=== PATIENT | female | born 1935 | race Caucasian/White ===

== ENCOUNTER → 2021-01-12 | Outpatient (CLI) | payer SELFPAY ==
[2021-01-12 19:02] LABS: Source, Urine Clean Catch
[2021-01-12 19:39] LABS: Appearance, Urine Cloudy (Clear); Bilirubin, Urine Neg (Neg); Blood, Urine 4+ (Neg); Color, Urine Yellow (P-Yellow); Glucose Qualitative, Urine Neg (Neg); Ketones, Urine Neg (Neg); Leukocyte Esterase, Urine 3+ (Neg); Nitrite, Urine Pos (Neg); Protein, Urine 3+ (Neg); Specific Gravity, Urine 1.015 (1.003-1.022); Urobilinogen, Urine NORM (Normal); pH, Urine 6.5 (5.0-8.0)
[2021-01-12 20:11] LABS: Bacteria Many /hpf; Red Blood Cells, Urine 25-50 /hpf (0-2); Squamous Epithelial Cells Rare /hpf (Few); White Blood Cells, Urine TNTC /hpf (0-5)
== END | disposition home or self-care (01) ==
LOC: LAB SHORT 10:30
PROVIDERS: Family Medicine
DX: N39.0 Urinary tract infection, site not specified (principal)
CPT/HCPCS: 81001; 87077; 87086; 87186

== ENCOUNTER → 2021-04-25 | Outpatient (CLI) | payer OTHER ==
[2021-04-25 12:21] LABS: BASOPHILS ABSOLUTE AUTO 0.05 K/mm3 (0.00-0.23); BASOPHILS PERCENT AUTO 1 % (0-2); EOSINOPHILS PERCENT AUTO 3 % (0-6); Hematocrit 45.6 % (33.0-51.0); Hemoglobin 13.9 g/dL (11.5-16.0); IMMATURE GRAN ABSOLUTE AUTO 0.01 K/mm3 (0.00-0.10); IMMATURE GRAN PERCENT AUTO 0 % (0-1); LYMPHOCYTES ABSOLUTE AUTO 1.85 K/mm3 (0.84-5.20); LYMPHOCYTES PERCENT AUTO 28 % (21-46); MONOCYTES PERCENT AUTO 6 % (4-13); Mean Corpuscular HGB 25.8 pg (26.0-34.0); Mean Corpuscular HGB Conc 30.5 g/dL (31.5-36.5); Mean Corpuscular Volume 85 fL (80-100); Mean Platelet Volume 9.6 fL (9.1-12.4); NEUTROPHILS ABSOLUTE AUTO 4.17 K/mm3 (1.96-9.15); NEUTROPHILS PERCENT AUTO 63 % (41-73); Platelet Count 303 K/mm3 (150-400); RDW Coefficient Variation 14.3 % (11.7-14.2); RDW Standard Deviation 43.7 fL (35.1-46.3); Red Blood Cell Count 5.38 M/mm3 (3.80-5.20); White Blood Cell Count 6.68 K/mm3 (4.00-11.30)
[2021-04-25 13:03] LABS: Alanine Aminotransfer (ALT/SGP 54 U/L (12-78); Albumin, Blood 3.6 g/dL (3.4-5.0); Albumin/Globulin Ratio 0.9 (0.8-1.8); Alk Phos 77 U/L (50-136); Anion Gap 10 mmol/L (6-16); Aspartate Aminotrans (AST/SGOT 36 U/L (12-37); Bilirubin, Total 0.4 mg/dL (0.1-1.0); Blood Urea Nitrogen 16 mg/dL (8-24); Bun/Creatinine Ratio 18.4 (12.0-20.0); CHOL/HDL RATIO 4.6; CO2, Blood 27 mmol/L (21-32); Calcium, Blood 8.6 mg/dL (8.5-10.1); Chloride, Blood 101 mmol/L (98-108); Cholesterol 274 mg/dL (50-200); Creatinine, Blood 0.87 mg/dL (0.40-1.00); Free Thyroxine 1.38 ng/dL (0.70-1.60); Glomerular Filtration Rate >60 (60-); Glucose, Blood 155 mg/dL (70-99); HDL Cholesterol 59 mg/dL (>39); LDL/HDL RATIO 3.3; Low Density Lipoprotein Chol 193 mg/dL (0-110); Potassium, Blood 3.8 mmol/L (3.5-5.5); Sodium, Blood 138 mmol/L (136-145); Total Protein, Blood 7.6 g/dL (6.4-8.2); Triglycerides 110 mg/dL (30-160); Triiodothyronine, Free 2.83 pg/mL (2.18-3.98); Very Low Density Lipoprot Chol 22 mg/dL (6-32)
== END ==
LOC: LAB SHORT 11:15
PROVIDERS: Family Medicine
DX: D50.9 Iron deficiency anemia, unspecified (principal); E89.0 Postprocedural hypothyroidism; F31.9 Bipolar disorder, unspecified; I10 Essential (primary) hypertension
CPT/HCPCS: 80053; 80061; 84439; 84443; 84481; 85025

== ENCOUNTER → 2021-07-13 | Outpatient (CLI) | payer MEDICARE, OTHER ==
[2021-07-15 07:11] LABS: HEMOGLOBIN A1C 5.9 % (4.8-5.6)
== END | disposition home or self-care (01) ==
LOC: LAB SHORT 08:00
PROVIDERS: Family Medicine
DX: E11.9 Type 2 diabetes mellitus without complications (principal)
CPT/HCPCS: 83036

== ENCOUNTER → 2021-07-20 | Outpatient (CLI) | payer MEDICARE, OTHER ==
[2021-07-20 12:20] LABS: Alanine Aminotransfer (ALT/SGP 21 U/L (12-78); Albumin, Blood 3.4 g/dL (3.4-5.0); Alk Phos 60 U/L (50-136); Anion Gap 4 mmol/L (6-16); Aspartate Aminotrans (AST/SGOT 13 U/L (12-37); Bilirubin, Total 0.4 mg/dL (0.1-1.0); Blood Urea Nitrogen 20 mg/dL (8-24); Bun/Creatinine Ratio 24.7 (12.0-20.0); CO2, Blood 32 mmol/L (21-32); Chloride, Blood 103 mmol/L (98-108); Creatinine, Blood 0.81 mg/dL (0.40-1.00); Free Thyroxine 1.19 ng/dL (0.70-1.60); Globulin, Blood 3.5 g/dL (2.2-4.0); Glomerular Filtration Rate >60 (60-); Glucose, Blood 131 mg/dL (70-99); Potassium, Blood 4.2 mmol/L (3.5-5.5); Sodium, Blood 139 mmol/L (136-145); Total Protein, Blood 6.9 g/dL (6.4-8.2)
[2021-07-20 12:24] LABS: Triiodothyronine, Free 2.51 pg/mL (2.18-3.98)
[2021-07-20 12:26] LABS: BASOPHILS ABSOLUTE AUTO 0.04 K/mm3 (0.00-0.23); BASOPHILS PERCENT AUTO 1 % (0-2); EOSINOPHILS ABSOLUTE AUTO 0.29 K/mm3 (0.00-0.68); EOSINOPHILS PERCENT AUTO 6 % (0-6); Hematocrit 43.7 % (33.0-51.0); Hemoglobin 13.2 g/dL (11.5-16.0); IMMATURE GRAN ABSOLUTE AUTO 0.01 K/mm3 (0.00-0.10); IMMATURE GRAN PERCENT AUTO 0 % (0-1); LYMPHOCYTES ABSOLUTE AUTO 1.58 K/mm3 (0.84-5.20); LYMPHOCYTES PERCENT AUTO 30 % (21-46); MONOCYTES ABSOLUTE AUTO 0.33 K/mm3 (0.16-1.47); MONOCYTES PERCENT AUTO 6 % (4-13); Mean Corpuscular HGB 25.8 pg (26.0-34.0); Mean Corpuscular HGB Conc 30.2 g/dL (31.5-36.5); Mean Corpuscular Volume 86 fL (80-100); Mean Platelet Volume 9.6 fL (9.1-12.4); NEUTROPHILS ABSOLUTE AUTO 3.05 K/mm3 (1.96-9.15); NEUTROPHILS PERCENT AUTO 58 % (41-73); Platelet Count 292 K/mm3 (150-400); RDW Coefficient Variation 15.1 % (11.7-14.2); RDW Standard Deviation 47.2 fL (35.1-46.3); Red Blood Cell Count 5.11 M/mm3 (3.80-5.20)
== END | disposition home or self-care (01) ==
LOC: LAB SHORT 09:59
PROVIDERS: Family Medicine
DX: E89.0 Postprocedural hypothyroidism (principal)
CPT/HCPCS: 80053; 84439; 84443; 84481; 85025

== ENCOUNTER → 2023-04-01 | Outpatient (CLI) | payer OTHER ==
[2023-04-03 11:12] LABS: Source, Urine Clean Catch
[2023-04-03 13:40] LABS: Appearance, Urine Hazy (Clear); Bilirubin, Urine Neg (Neg); Blood, Urine Neg (Neg); Color, Urine Yellow (P-Yellow); Glucose Qualitative, Urine Neg (Neg); Ketones, Urine Neg (Neg); Leukocyte Esterase, Urine 3+ (Neg); Nitrite, Urine Pos (Neg); Protein, Urine Neg (Neg); Urobilinogen, Urine NORM (Normal)
[2023-04-03 14:17] LABS: Bacteria Many /hpf; Squamous Epithelial Cells Few /hpf (Few)
[2023-04-03 14:18] LABS: Amorphous Light (0-Heavy)
== END ==
LOC: PLD 17:20 → LAB SHORT 17:20
PROVIDERS: Registered Nurse
DX: N39.0 Urinary tract infection, site not specified (principal)
CPT/HCPCS: 81001; 87077; 87086; 87186

== ENCOUNTER → 2024-10-25 | Outpatient (CLI) | payer OTHER ==
[~2024-10-25] MED LIST: AMLO5 PO; Acetaminophen325 M1 PO; ELIQUIS5 M2 PO; ENTRESTO 97 MG1 EACH PO; FURO40 PO; HYDHCL25 PO; JARDIANCE10 MG PO; LEVSOD100 PO; METO50ER PO; MIRALAX1714 PO; MULVITA PO; OLAN5A MM; OLANZAPINE ODT512 PO; ONDA4 PO; SPIR25 PO; VITAMIN D325 MC3 PO
[2024-10-25 21:35] LABS: Source, Urine Clean Catch
[2024-10-25 21:41] LABS: Bilirubin, Urine Neg (Neg); Glucose Qualitative, Urine Neg (Neg); Ketones, Urine Neg (Neg); Leukocyte Esterase, Urine 3+ (Neg); Protein, Urine 2+ (Neg); Specific Gravity, Urine 1.020 (1.003-1.022); Urobilinogen, Urine NORM (Normal)
[2024-10-25 21:48] LABS: Color, Urine Yellow (P-Yellow)
[2024-10-25 21:49] LABS: Red Blood Cells, Urine 0-2 /hpf (0-2); White Blood Cells, Urine TNTC /hpf (0-5)
== END ==
LOC: LAB SHORT 18:00 → LAB 18:00
PROVIDERS: Registered Nurse
DX: N39.0 Urinary tract infection, site not specified (principal)
CPT/HCPCS: 81001; 87077; 87086; 87186

== ENCOUNTER 2024-10-26 12:41 | Inpatient (IN) | payer OTHER ==
[~2024-10-26] VITALS: Ht 162.6 cm; Wt 74.2 kg
[2024-10-26 14:25] LABS: BASOPHILS ABSOLUTE AUTO 0.03 K/mm3 (0.00-0.23); BASOPHILS PERCENT AUTO 0 % (0-2); EOSINOPHILS ABSOLUTE AUTO 0.10 K/mm3 (0.00-0.68); EOSINOPHILS PERCENT AUTO 2 % (0-6); Hematocrit 40.3 % (33.0-51.0); Hemoglobin 12.7 g/dL (11.5-16.0); IMMATURE GRAN ABSOLUTE AUTO 0.02 K/mm3 (0.00-0.10); IMMATURE GRAN PERCENT AUTO 0 % (0-1); LYMPHOCYTES ABSOLUTE AUTO 1.01 K/mm3 (0.84-5.20); LYMPHOCYTES PERCENT AUTO 15 % (21-46); MONOCYTES ABSOLUTE AUTO 0.59 K/mm3 (0.16-1.47); MONOCYTES PERCENT AUTO 9 % (4-13); Mean Corpuscular HGB Conc 31.5 g/dL (31.5-36.5); Mean Corpuscular Volume 87 fL (80-100); NEUTROPHILS ABSOLUTE AUTO 5.03 K/mm3 (1.96-9.15); NEUTROPHILS PERCENT AUTO 74 % (41-73); NRBC ABSOLUTE 0.00 K/mm3 (0.00-0.02); NRBC Auto 0.0 /100 WBC (0.0-0.2); Platelet Count 231 K/mm3 (150-400); RDW Coefficient Variation 14.7 % (11.7-14.2); RDW Standard Deviation 46.2 fL (35.1-46.3)
[2024-10-26 14:44] LABS: Alanine Aminotransfer (ALT/SGP 31.0 U/L (12-78); Albumin, Blood 3.1 g/dL (3.4-5.0); Albumin/Globulin Ratio 0.8 (0.8-1.8); Anion Gap 10.0 mmol/L (3-11); Aspartate Aminotrans (AST/SGOT 41.0 U/L (12-37); Bilirubin, Total 0.9 mg/dL (0.1-1.0); Blood Urea Nitrogen 14.0 mg/dL (8-24); CO2, Blood 28.0 mmol/L (21-32); Calcium, Blood 8.4 mg/dL (8.5-10.1); Chloride, Blood 96.0 mmol/L (98-108); Creatinine, Blood 0.67 mg/dL (0.40-1.00); Globulin, Blood 4.1 g/dL (2.2-4.0); Glucose, Blood 104.0 mg/dL (70-99); Potassium, Blood 5.7 mmol/L (3.5-5.5); Sodium, Blood 128.0 mmol/L (136-145); Total Protein, Blood 7.2 g/dL (6.4-8.2)
[2024-10-26] MEDS ORDERED: Diazepam 5 MG / ML 2ML SYR IV ONE (16:25)
[2024-10-26 16:36] LABS: Magnesium, Blood 2.2 mg/dL (1.6-2.4); Thyroid Stimulating Hormone 5.47 uIU/mL (0.360-4.800)
[2024-10-26 17:46] VITALS: BP 127/85
--- NOTE | 2024-10-26 19:18 | NUR ---
ADMIT NOTE REPORT FROM DIRECTOR OF FOOD AND NUTRITION SERVICESARELY DIAZ. BROUGHT UP FROM ER VIA GURNEY, SLIDE TRANSFER INTO BED. PT CAN NOT TOLERATE LAYING FLAT. HOB ELEVATED. EDMEA T/O ARMS/LEGS/ABD/BACK, APPEARS TO BE WEEPING. CLARIFIED 80 MG DOSE LASIX THAT WAS ORDERED 4 HOURS AFTER LAST 80 M DOSE ADMIN IN ER. DR. BECKMAN ORDERED TO HOLD. PT VERY LIMITED MOBILITY, HAS BEEN WHEELCHAIR BOUND PER PATIENT AT [facility] [place]. BRUISING TO RIGHT ARM PER PATIENT FROM FALL. VERY THIN/FRAGILE/PEELING SKIN. MOISTURIZER APPLIED T/O. PREET LE WITH PETECHIAE LIKE SPOTS TO LEFT ARM AND LEFT LEG. ON TELE A-FLUTTER AT 122. BUT HEART SOUNDS ARE NORMAL. CAP REFILL GREATER THAN 3 SECONDS. PEDAL PULSES COULD NOT BE FELT DUE TO EDMEA, BUT FAINLY HEARD ON DOPPLER. PATIENT DENIES NUMBNESS/TINGLING T/O EXTREMITIES. PUREWICK IN PLACE TO MONITOR OUTPUT. PT ANSWERS QUESTIONS APPROPRIATELY. A/OX4. BASELINE ROOM AIR, ER PLACED ON 2L TO MAINTAIN SATS AFTER IV VALIUM WAS GIVEN. PT ANXIOUS DUE TO SHORTNESS OF BREATH.
[2024-10-26 19:33] VITALS: BP 118/63
[2024-10-26 19:52] VITALS: BP 96/67
[2024-10-27] VITALS (8 sets, daily range): BP systolic 93–118; BP diastolic 62–74
--- NOTE | 2024-10-27 01:55 | NUR ---
Telemetry notified this nurse pt is currently in AFIB review of pt history and ekg shows patient has recurrent hx of AFIB and ST pt is resting comfortably no s/s of distress.
--- NOTE | 2024-10-27 03:28 | NUR ---
SHIFT SUMMARY: PT IS AOX4. Q2 REPOSITIONING DONE. PUREWIC IN PLACE AND SUCTION IS AT 75 AND DRAINING YELLOW URINE INTO CANISTER. PT MEDICATED PER EMAR. NO ACUTE CHANGES THIS SHIFT.
[2024-10-27 05:51] LABS: BASOPHILS ABSOLUTE AUTO 0.04 K/mm3 (0.00-0.23); BASOPHILS PERCENT AUTO 1 % (0-2); EOSINOPHILS ABSOLUTE AUTO 0.09 K/mm3 (0.00-0.68); EOSINOPHILS PERCENT AUTO 1 % (0-6); Hematocrit 38.3 % (33.0-51.0); Hemoglobin 12.0 g/dL (11.5-16.0); IMMATURE GRAN ABSOLUTE AUTO 0.01 K/mm3 (0.00-0.10); IMMATURE GRAN PERCENT AUTO 0 % (0-1); LYMPHOCYTES ABSOLUTE AUTO 1.05 K/mm3 (0.84-5.20); LYMPHOCYTES PERCENT AUTO 16 % (21-46); MONOCYTES ABSOLUTE AUTO 0.84 K/mm3 (0.16-1.47); MONOCYTES PERCENT AUTO 13 % (4-13); Mean Corpuscular HGB Conc 31.3 g/dL (31.5-36.5); Mean Corpuscular Volume 86 fL (80-100); NEUTROPHILS ABSOLUTE AUTO 4.44 K/mm3 (1.96-9.15); NEUTROPHILS PERCENT AUTO 69 % (41-73); NRBC ABSOLUTE 0.00 K/mm3 (0.00-0.02); NRBC Auto 0.0 /100 WBC (0.0-0.2); Platelet Count 197 K/mm3 (150-400); RDW Coefficient Variation 14.7 % (11.7-14.2); RDW Standard Deviation 46.2 fL (35.1-46.3)
[2024-10-27 06:23] LABS: Alanine Aminotransfer (ALT/SGP 25.0 U/L (12-78); Albumin, Blood 2.9 g/dL (3.4-5.0); Albumin/Globulin Ratio 1.0 (0.8-1.8); Anion Gap 6.0 mmol/L (3-11); Aspartate Aminotrans (AST/SGOT 17.0 U/L (12-37); Bilirubin, Total 0.9 mg/dL (0.1-1.0); Blood Urea Nitrogen 13.0 mg/dL (8-24); CO2, Blood 34.0 mmol/L (21-32); Calcium, Blood 8.0 mg/dL (8.5-10.1); Chloride, Blood 97.0 mmol/L (98-108); Creatinine, Blood 0.83 mg/dL (0.40-1.00); Globulin, Blood 3.0 g/dL (2.2-4.0); Glucose, Blood 90.0 mg/dL (70-99); Potassium, Blood 4.1 mmol/L (3.5-5.5); Sodium, Blood 133.0 mmol/L (136-145); Total Protein, Blood 5.9 g/dL (6.4-8.2)
[2024-10-27] MEDS ORDERED: MULVITA PO (07:20)
[2024-10-27] MEDS ORDERED: VITAMIN D325 MC3 PO (07:20)
[2024-10-27] MEDS ORDERED: LEVSOD100 PO (07:21)
[2024-10-27] MEDS ORDERED: AMLO5 PO (07:21)
[2024-10-27] MEDS ORDERED: OLANZAPINE ODT512 PO (07:22)
[2024-10-27] MEDS ORDERED: HYDHCL25 PO (07:23)
[2024-10-27] MEDS ORDERED: MIRALAX1714 PO (07:25)
[2024-10-27] MEDS ORDERED: Enoxaparin 40 MG/0.4 ML SYR SC SCH (09:00)
[2024-10-27] MEDS ORDERED: CefTRIAXone Sodium 1,000 MG in NS 100 ML IV SCH (09:00)
[2024-10-27] MEDS ORDERED: NS 250 ML IV PRN (10:15)
--- NOTE | 2024-10-27 13:14 | NUR ---
NURSE FROM [facility] CALLED FOR AN UPDATE ON PATIENT.
[2024-10-27] MEDS ORDERED: Metoprolol Tartrate 1 MG/ML 5 ML VIAL IV PRN (15:15)
--- NOTE | 2024-10-27 16:20 | NUR ---
NOTIFIED DR. EDMONDSON PT HEART RATE WAS MAINTINING GREATER THAN [address] EDMONDSON ORDERED ONE TIME DOSE OF 5 MG IV LOPRESSOR AND STARTED PO 12.5 MG METOPROLOL BID. NOTIFIED TELE OF IV PUSH MEDICATION AND PT HR IS NOW SUSTAINING LOW 100'S. B/P SOFT BUT STABLE WITH MAP GREATER THAN 65. PT TOLERATED IVP WELL. WILL GET FOLLOW UP BLOOD PRESUSRE IN ABOUT 1 HOUR.
[2024-10-27] MEDS ORDERED: Furosemide 10 MG / ML 2ML Vial IV SCH (18:00)
[2024-10-27] MEDS ORDERED: Lactobacil 2-S.Thermo-Bifido 1 1 Cap PO SCH (21:00)
[2024-10-28 00:25] VITALS: BP 105/60
[2024-10-28 03:02] VITALS: BP 107/72
--- NOTE | 2024-10-28 04:09 | NUR ---
SHIFT SUMMARY PT ALERT ORIENTED BUT DONT LIKE TO BE BOTHERED. SHE PREFERS TO BE SLEEPING AND TO BE LEFT ALONE. WE EXPLAINED TO HER THAT WE HAVE TO KEEP HER CLEAN AND TURNED. REMAINS ON TELEMETRY AT [facility] AT 92. REMAINS WITH ANASARCA AND IS VERY EDEMATOUS ALL OVER HER BODY WITH 3-4 EDEMA TO BILAT LEGS. REMAINS WITH A PUREWICK IN PLACE WHICH WAS CHANGED THIS AM. REMAINS ON BEDREST. CONTINUES ON ROCEPHIN FOR UTI. REMAINS ON STRICT I7O AND DAILY WEIGHTS R/T NEW DX OF CHF. SHE GETS PERIODS OF FEELING VERY ANXIOUS AND IS MEDICATED WITH ATIVAN WITH GOOD RELIEF. SHES KEPT TURNED AND REPOSITIONED Q2HR. RESTING IN BED AT THIS TIME WITH CALL LIGHT IN REACH
[2024-10-28 06:03] LABS: BASOPHILS ABSOLUTE AUTO 0.03 K/mm3 (0.00-0.23); BASOPHILS PERCENT AUTO 1 % (0-2); EOSINOPHILS ABSOLUTE AUTO 0.10 K/mm3 (0.00-0.68); EOSINOPHILS PERCENT AUTO 2 % (0-6); Hematocrit 38.3 % (33.0-51.0); Hemoglobin 11.8 g/dL (11.5-16.0); IMMATURE GRAN ABSOLUTE AUTO 0.02 K/mm3 (0.00-0.10); IMMATURE GRAN PERCENT AUTO 0 % (0-1); LYMPHOCYTES ABSOLUTE AUTO 1.04 K/mm3 (0.84-5.20); LYMPHOCYTES PERCENT AUTO 18 % (21-46); MONOCYTES ABSOLUTE AUTO 0.71 K/mm3 (0.16-1.47); MONOCYTES PERCENT AUTO 12 % (4-13); Mean Corpuscular HGB Conc 30.8 g/dL (31.5-36.5); Mean Corpuscular Volume 87 fL (80-100); NEUTROPHILS ABSOLUTE AUTO 3.81 K/mm3 (1.96-9.15); NEUTROPHILS PERCENT AUTO 67 % (41-73); NRBC ABSOLUTE 0.00 K/mm3 (0.00-0.02); NRBC Auto 0.0 /100 WBC (0.0-0.2); Platelet Count 216 K/mm3 (150-400); RDW Coefficient Variation 14.6 % (11.7-14.2); RDW Standard Deviation 47.1 fL (35.1-46.3)
[2024-10-28 06:29] LABS: Alanine Aminotransfer (ALT/SGP 21.0 U/L (12-78); Albumin, Blood 2.9 g/dL (3.4-5.0); Albumin/Globulin Ratio 0.9 (0.8-1.8); Anion Gap 8.0 mmol/L (3-11); Aspartate Aminotrans (AST/SGOT 14.0 U/L (12-37); Bilirubin, Total 0.6 mg/dL (0.1-1.0); Blood Urea Nitrogen 21.0 mg/dL (8-24); CO2, Blood 35.0 mmol/L (21-32); Calcium, Blood 8.0 mg/dL (8.5-10.1); Chloride, Blood 96.0 mmol/L (98-108); Creatinine, Blood 1.09 mg/dL (0.40-1.00); Globulin, Blood 3.1 g/dL (2.2-4.0); Glucose, Blood 99.0 mg/dL (70-99); Potassium, Blood 3.8 mmol/L (3.5-5.5); Sodium, Blood 135.0 mmol/L (136-145); Total Protein, Blood 6.0 g/dL (6.4-8.2)
[2024-10-28 07:51] VITALS: BP 101/64
[2024-10-28 11:40] VITALS: BP 103/71
[2024-10-28 15:12] VITALS: BP 100/63
[2024-10-28 19:27] VITALS: BP 116/64
[2024-10-28] MEDS ORDERED: Sacubitril/Valsartan 49 MG/51 MG Tab PO SCH (21:00)
[2024-10-29] VITALS (8 sets, daily range): BP systolic 84–109; BP diastolic 48–88
[2024-10-29 05:40] LABS: BASOPHILS ABSOLUTE AUTO 0.02 K/mm3 (0.00-0.23); BASOPHILS PERCENT AUTO 0 % (0-2); EOSINOPHILS ABSOLUTE AUTO 0.07 K/mm3 (0.00-0.68); EOSINOPHILS PERCENT AUTO 1 % (0-6); Hematocrit 38.2 % (33.0-51.0); Hemoglobin 11.8 g/dL (11.5-16.0); IMMATURE GRAN ABSOLUTE AUTO 0.02 K/mm3 (0.00-0.10); IMMATURE GRAN PERCENT AUTO 0 % (0-1); LYMPHOCYTES ABSOLUTE AUTO 1.15 K/mm3 (0.84-5.20); LYMPHOCYTES PERCENT AUTO 17 % (21-46); MONOCYTES ABSOLUTE AUTO 0.75 K/mm3 (0.16-1.47); MONOCYTES PERCENT AUTO 11 % (4-13); Mean Corpuscular HGB Conc 30.9 g/dL (31.5-36.5); Mean Corpuscular Volume 87 fL (80-100); NEUTROPHILS ABSOLUTE AUTO 4.67 K/mm3 (1.96-9.15); NEUTROPHILS PERCENT AUTO 70 % (41-73); NRBC ABSOLUTE 0.00 K/mm3 (0.00-0.02); NRBC Auto 0.0 /100 WBC (0.0-0.2); Platelet Count 206 K/mm3 (150-400); RDW Coefficient Variation 14.5 % (11.7-14.2); RDW Standard Deviation 46.6 fL (35.1-46.3)
--- NOTE | 2024-10-29 05:42 | NUR ---
SHIFT SUMMARY PT ALERT ORIENTED TO SELF AND PLACE UNSURE OF DATE OR MONTH AND IS VERY CONFUSED. SHE KEEPS INSISTING THAT SHE CAN GET UP OUT OF BED WHEN SHES VERY WEAK AND UNABLE TO STAND. SHE HAS TO BE REMINDED TO STAY IN THE BED. BED ALARM IS ON. REMAINS ON ROCEPHIN ORDERED FOR UTI SHE LIVES AT [facility] AND SHOULD BE GOING BACK THERE TODAY. SHE HAS A PUREWICK INTACT AND IS INC OF URINE. SHE REMAINS ON BEDREST AND IS A LIFT TRANSFER. REMAINS ON 1L VIA NC. SHES KEPT TURNED AND REPOSITIONED Q2HR. SHES A DAILY WEIGHT AND ON STRICT I&O DUE TO CHF. SHE GETS VERY ANXIOUS AT TIMES AND HAS A ORDER FOR ATIVAN NEEDED. SHES RESTING IN BED AT THIS TIME WITH CALL LIGHT IN REACH
[2024-10-29 06:03] LABS: Anion Gap 6.0 mmol/L (3-11); Blood Urea Nitrogen 22.0 mg/dL (8-24); CO2, Blood 39.0 mmol/L (21-32); Calcium, Blood 7.9 mg/dL (8.5-10.1); Chloride, Blood 95.0 mmol/L (98-108); Creatinine, Blood 0.94 mg/dL (0.40-1.00); Glucose, Blood 100.0 mg/dL (70-99); Potassium, Blood 3.5 mmol/L (3.5-5.5); Sodium, Blood 136.0 mmol/L (136-145)
--- NOTE | 2024-10-29 17:19 | NUR ---
End of shift summary: Patient is alert and oriented to self, place only; forgetful and confused, repeats self/questions and call frequently for same reason; pleasant and cooperative with care. Patient with purewick in place draining dark yellow urine. Patient up with physical therapy utilizing walker and gait belt. Patient denies CP, SOB, N/V/D, or pain this shift. Patient with no acute changes this shift. All medications administered per EMAR. Patient utilizing call light sporadically, will call out if she see's you in bliss instead at times; call light within reach, bed in lowest position and bed alarm in place for safety. Will continue to monitor until next shift nurse arrives and report is given.
[2024-10-29] MEDS ORDERED: NS 250 ML IV ONE (20:20)
--- NOTE | 2024-10-29 20:38 | NUR ---
WHEN GETTING PATIENTS VITALS - HER BP ON THE LEFT ARM WAS 84/48 WITH MAP OF 55, THEN RECHECKED BP ON THE RIGHT ARM WITH BP 87/59 WITH MAP OF 70. PATIENT DENIES DIZZINESS OR LIGHTHEADEDNESS AT THIS TIME. THIS NURSE CALLED DR. HANSEN TO UPDATE HIM ON HER CONDITION. MD ORDERED TO HOLD ENTRESTO AND TO GIVE A NS BOLUS OF 250ML - THEN RECHECK BP - AND CALL HIM BACK WITH AN UPDATE.
--- NOTE | 2024-10-29 22:34 | NUR ---
CALLED TYRONE REINA WITH UPDATES: POST BOLUS SBP WAS 103 WITH A MAP >65. PATIENT WAS BLADDER SCANNED WITH 1,088ML, PATIENT ATTEMPTED TO VOID, THEN WAS RE-BLADDER SCANNED WITH >800ML STILL IN BLADDER. PATIENT THEN WAS STRAIGHT CATHED WITH 700ML URINE OUTPUT. TELE ALSO NOTIFIED THIS NURSE AT 2140 THAT PATIENT WENT INTO TRIGEMINY FOR 28 BEATS. NOTIFIED, NO NEW ORDERS AT THIS TIME.
[2024-10-30] VITALS (10 sets, daily range): BP systolic 88–118; BP diastolic 49–73
--- NOTE | 2024-10-30 06:19 | NUR ---
SHIFT SUMMARY: PATIENT IS A&OX2, OFTEN REPEATS HERSELF BUT IS EASILY REORIENTED. PER RN GERIATRIC PATIENT IS AFLUTTER @ 80 BPM. PATIENT WAS STRAIGHT CATHED X2 LAST NIGHT THE LAST ONE BEING AT 0430 THIS MORNING AND 550ML URINE OUTPUT. PATIENT PRIOR TO STRAIGHT CATHING DENIED NEEDING TO VOID OR HAD THE URGE TO VOID. PATIENT REFUSED REPOSITIONING MAJORITY OF THE SHIFT. PATIENT IS A 2P ASSIST WITH BSC OR WHEN CHANGING LINENS/ATTENDS. PATIENT IS LAYING IN BED WITH CALL LIGHT IN REACH.
--- NOTE | 2024-10-30 17:58 | NUR ---
End of shift summary: Patient is alert and oriented x2, self and place, with continued confusion and repeating questions. Patient with no acute changes this shift. New 14F mckeon catheter in place due to urine retention. No complaint of pain, SOB, chest pain or pressure or N/V/D. All medications administered per EMAR. Patient utilizing call light appropriately; call light within reach, bed in lowest position and bed alarm in place for safety. Will continue to monitor until next shift nurse arrives and report is given.
[2024-10-31 04:38] VITALS: BP 103/73
[2024-10-31 06:12] LABS: BASOPHILS ABSOLUTE AUTO 0.02 K/mm3 (0.00-0.23); BASOPHILS PERCENT AUTO 0 % (0-2); EOSINOPHILS ABSOLUTE AUTO 0.10 K/mm3 (0.00-0.68); EOSINOPHILS PERCENT AUTO 2 % (0-6); Hematocrit 40.3 % (33.0-51.0); Hemoglobin 12.3 g/dL (11.5-16.0); IMMATURE GRAN ABSOLUTE AUTO 0.02 K/mm3 (0.00-0.10); IMMATURE GRAN PERCENT AUTO 0 % (0-1); LYMPHOCYTES ABSOLUTE AUTO 1.14 K/mm3 (0.84-5.20); LYMPHOCYTES PERCENT AUTO 18 % (21-46); MONOCYTES ABSOLUTE AUTO 0.70 K/mm3 (0.16-1.47); MONOCYTES PERCENT AUTO 11 % (4-13); Mean Corpuscular HGB Conc 30.5 g/dL (31.5-36.5); Mean Corpuscular Volume 86 fL (80-100); NEUTROPHILS ABSOLUTE AUTO 4.28 K/mm3 (1.96-9.15); NEUTROPHILS PERCENT AUTO 68 % (41-73); NRBC ABSOLUTE 0.00 K/mm3 (0.00-0.02); NRBC Auto 0.0 /100 WBC (0.0-0.2); Platelet Count 210 K/mm3 (150-400); RDW Coefficient Variation 14.6 % (11.7-14.2); RDW Standard Deviation 46.1 fL (35.1-46.3)
[2024-10-31 06:53] LABS: Alanine Aminotransfer (ALT/SGP 20.0 U/L (12-78); Albumin, Blood 2.8 g/dL (3.4-5.0); Albumin/Globulin Ratio 0.8 (0.8-1.8); Anion Gap 8.0 mmol/L (3-11); Aspartate Aminotrans (AST/SGOT 18.0 U/L (12-37); Bilirubin, Total 0.7 mg/dL (0.1-1.0); Blood Urea Nitrogen 29.0 mg/dL (8-24); CO2, Blood 36.0 mmol/L (21-32); Calcium, Blood 8.4 mg/dL (8.5-10.1); Chloride, Blood 97.0 mmol/L (98-108); Creatinine, Blood 0.96 mg/dL (0.40-1.00); Globulin, Blood 3.3 g/dL (2.2-4.0); Glucose, Blood 103.0 mg/dL (70-99); Potassium, Blood 3.3 mmol/L (3.5-5.5); Sodium, Blood 138.0 mmol/L (136-145); Total Protein, Blood 6.1 g/dL (6.4-8.2)
--- NOTE | 2024-10-31 07:20 | NUR ---
SHIFT SUMMARY; PATIENT SLEPT IN SHORT INTERVALS. NOT WANTING TO DO MUCH, O2/1L/NC PRN TONIGHT. DID NOT TAKE MUCH WATER, LESS THAN 500ML. TELE A FLUTTER 87 WITH PVC'S. BLE FOB ELEVATED, BOTH HANDS PROPPED UP ON PILLOWS.
[2024-10-31 07:53] VITALS: BP 96/62
[2024-10-31 11:45] VITALS: BP 115/64
[2024-10-31 16:01] VITALS: BP 100/73
--- NOTE | 2024-10-31 19:26 | NUR ---
SHIFT SUMMARY: PT A&O X2. VERY FORGETFUL. PT HOLLERS OUT INSTEAD OF USING CALL LIGHT. SPOKE WITH DR. EDMONDSON THIS AM PT WAS HAVING HYPOTENSION AND AN ORDER FOR IV DIURETICS. PER DR. EDMONDSON, HOLD IV AND PO DIURETICS AND WOULD ADJUST DOSAGE. PT HAS YELLED OUT FOR HELP TO THE TOILET MULTIPLE TIMES THIS SHIFT. PT WILL THEN SIT ON COMMODE/TOILET AND STATE SHE IS UNABLE TO GO THEN YELL OUT FOR HELP AGAIN. STAFF HAS EXPLAINED TO PATIENT MULTIPLE TIMES THAT SHE CAN SIT ON BED SINGH OR CLEAN BRIEF IF SHE CAN NOT GO IN COMMODE OR TOILET BUT PT AGAIN REFUSED. LOMELI IN PLACE DRAINING YELLOW URINE TO GRAVITY. STAFF FROM [facility] IN TO SEE PT THIS AM STATING EQUIPMENT GOT DELIVERED TO PT ROOM AT FACILITY. CALL LIGHT IN REACH. BED IN LOWEST POSITION.
[2024-10-31 20:14] VITALS: BP 93/56
[2024-11-01] VITALS (8 sets, daily range): BP systolic 84–123; BP diastolic 52–74
[2024-11-01 05:37] LABS: BASOPHILS ABSOLUTE AUTO 0.02 K/mm3 (0.00-0.23); BASOPHILS PERCENT AUTO 0 % (0-2); EOSINOPHILS ABSOLUTE AUTO 0.14 K/mm3 (0.00-0.68); EOSINOPHILS PERCENT AUTO 3 % (0-6); Hematocrit 40.4 % (33.0-51.0); Hemoglobin 12.3 g/dL (11.5-16.0); IMMATURE GRAN ABSOLUTE AUTO 0.01 K/mm3 (0.00-0.10); IMMATURE GRAN PERCENT AUTO 0 % (0-1); LYMPHOCYTES ABSOLUTE AUTO 1.03 K/mm3 (0.84-5.20); LYMPHOCYTES PERCENT AUTO 18 % (21-46); MONOCYTES ABSOLUTE AUTO 0.64 K/mm3 (0.16-1.47); MONOCYTES PERCENT AUTO 11 % (4-13); Mean Corpuscular HGB Conc 30.4 g/dL (31.5-36.5); Mean Corpuscular Volume 87 fL (80-100); NEUTROPHILS ABSOLUTE AUTO 3.86 K/mm3 (1.96-9.15); NEUTROPHILS PERCENT AUTO 68 % (41-73); NRBC ABSOLUTE 0.00 K/mm3 (0.00-0.02); NRBC Auto 0.0 /100 WBC (0.0-0.2); Platelet Count 213 K/mm3 (150-400); RDW Coefficient Variation 14.6 % (11.7-14.2); RDW Standard Deviation 46.5 fL (35.1-46.3)
[2024-11-01 06:01] LABS: Albumin, Blood 2.8 g/dL (3.4-5.0); Anion Gap 5 mmol/L (3-11); Blood Urea Nitrogen 31 mg/dL (8-24); CO2, Blood 37 mmol/L (21-32); Calcium, Blood 8.5 mg/dL (8.5-10.1); Chloride, Blood 97 mmol/L (98-108); Creatinine, Blood 0.99 mg/dL (0.40-1.00); Glucose, Blood 104 mg/dL (70-99); Magnesium, Blood 2.1 mg/dL (1.6-2.4); Phosphorus, Blood 3.3 mg/dL (2.5-4.9); Potassium, Blood 3.3 mmol/L (3.5-5.5); Sodium, Blood 136 mmol/L (136-145)
--- NOTE | 2024-11-01 07:35 | NUR ---
SHIFT SUMMARY; PATIENT SLEPT IN LONGER INTERVALS, BUT STILL AWAKE OFTEN. ABLE TO WALK WITH 1 ,/FWW. CHANGES HER MIND OFTEN AND CAN BE HARD TO REDIRECT. MEPILEX REMOVED, SOILED WTIH STOOL, TELE A FLUTTER 92.
[2024-11-01] MEDS ORDERED: Potassium Chloride 10 Meq Tablet SA PO SCH ×2 (09:00)
[2024-11-01] MEDS ORDERED: Furosemide 10 MG / ML 2ML Vial IV SCH (12:00)
[2024-11-01] MEDS ORDERED: Acetaminophen325 M1 PO (12:14)
[2024-11-01] MEDS ORDERED: FURO40 PO (12:15)
[2024-11-01] MEDS ORDERED: ONDA4 PO (12:16)
[2024-11-01] MEDS ORDERED: OLAN5A MM (12:16)
--- NOTE | 2024-11-01 18:28 | NUR ---
SHIFT SUMMARY: PATIENT STILL PLEASANTLY CONFUSED AND CONTINUES TO CALL OUT INTO HALLWAY. LASIX RESTARTED TODAY PER DOCTORS ORDER. BLOOD PRESSURE WAS IMPROVING EARLIER THIS DAY. BLOOD PRESSURE NOTED TO BE HYPOTENSIVE AFTER LASIX ADMINISTRATION. DR. EDMONDSON NOTIFIED OF RESULTS AND NO NEW ORDERS PLACED. PATIENT STILL HAS LOMELI AND IS DRAINING TO GRAVITY WITH CLEAR YELLOW URINE OUTPUT. PATIENT NOTED TO STILL BE EDEMITIS THROUGHOUT UPPER AND LOWER EXTREMETIES. PLAN TO D/C BACK TO [facility] ONCE IMPROVED. [facility] RECIEVED EARLIER THIS DAY. PLAN OF CARE ONGOING. WILL CONTINUE TO MONITOR.
[2024-11-02 04:07] VITALS: BP 105/68
[2024-11-02 05:48] LABS: BASOPHILS ABSOLUTE AUTO 0.03 K/mm3 (0.00-0.23); BASOPHILS PERCENT AUTO 1 % (0-2); EOSINOPHILS ABSOLUTE AUTO 0.12 K/mm3 (0.00-0.68); EOSINOPHILS PERCENT AUTO 2 % (0-6); Hematocrit 41.3 % (33.0-51.0); Hemoglobin 12.8 g/dL (11.5-16.0); IMMATURE GRAN ABSOLUTE AUTO 0.01 K/mm3 (0.00-0.10); IMMATURE GRAN PERCENT AUTO 0 % (0-1); LYMPHOCYTES ABSOLUTE AUTO 1.78 K/mm3 (0.84-5.20); LYMPHOCYTES PERCENT AUTO 29 % (21-46); MONOCYTES ABSOLUTE AUTO 0.57 K/mm3 (0.16-1.47); MONOCYTES PERCENT AUTO 9 % (4-13); Mean Corpuscular HGB Conc 31.0 g/dL (31.5-36.5); Mean Corpuscular Volume 86 fL (80-100); NEUTROPHILS ABSOLUTE AUTO 3.61 K/mm3 (1.96-9.15); NEUTROPHILS PERCENT AUTO 59 % (41-73); NRBC ABSOLUTE 0.00 K/mm3 (0.00-0.02); NRBC Auto 0.0 /100 WBC (0.0-0.2); Platelet Count 222 K/mm3 (150-400); RDW Coefficient Variation 14.6 % (11.7-14.2); RDW Standard Deviation 45.1 fL (35.1-46.3)
[2024-11-02 06:07] LABS: Albumin, Blood 2.8 g/dL (3.4-5.0); Anion Gap 9 mmol/L (3-11); Blood Urea Nitrogen 27 mg/dL (8-24); CO2, Blood 32 mmol/L (21-32); Calcium, Blood 8.2 mg/dL (8.5-10.1); Chloride, Blood 97 mmol/L (98-108); Creatinine, Blood 0.91 mg/dL (0.40-1.00); Glucose, Blood 119 mg/dL (70-99); Phosphorus, Blood 3.6 mg/dL (2.5-4.9); Potassium, Blood 3.7 mmol/L (3.5-5.5); Sodium, Blood 134 mmol/L (136-145)
[2024-11-02 07:37] VITALS: BP 115/83
[2024-11-02] MEDS ORDERED: Potassium Chloride 10 Meq Tablet SA PO ONE (10:15)
--- NOTE | 2024-11-02 14:17 | NUR ---
PATIENT CALLING OUT AND BED EXITING SEVERAL TIMES PER HOUR CONSISTENTLY. DEMANDING BEHAVIORS, DECLINES TO ASSIST HERSELF WITH ADL'S, TOILETING. WILL STAND WITH 1 ASSIST TO BSC, INCONTINENT BEFORE REACHING BSC. SEVERAL BM'S THIS SHIFT. LOMELI IN PLACE DRAINING FREELY TO GRAVITY. DISCUSSED THE NEED FOR CONTINUING TELE WITH DR EDMONDSON WHO FEELS IT IS NEEDED, LOW BP'S AND A FIB WITH PVC'S. DTI'S TO BILATERAL BUTTOCKS INTACT, PURPLE. ABLE TO MAKE NEEDS KNOWN. CALL LIGHT IN REACH. BED ALARMED.
[2024-11-02 14:55] VITALS: BP 111/62
[2024-11-02 19:10] VITALS: BP 92/79
[2024-11-02 23:07] VITALS: BP 107/61
--- NOTE | 2024-11-03 04:00 | NUR ---
SHIFT SUMMARY PATIENT HAD NO ACUTE CHANGES. AXO X 3 WITH CONFUSION AT TIMES. ONE ASSIST W/FWW TO BSC. DENIES CHEST PAIN, SOB, AND N/V. VSS/AFEBRILE. LOMELI PATENT AND DRAINING TO GRAVITY. PIV INTACT. TELE MONITOR AFIB 76. CALL LIGHT IN REACH. BED IN LOWEST POSITION AND ALARM ACTIVATED. WILL CONTINUE TO MONITOR UNTIL DAY SHIFT NURSE ASSUMES CARE.
[2024-11-03 05:44] VITALS: BP 114/79
[2024-11-03 06:40] LABS: Magnesium, Blood 2.1 mg/dL (1.6-2.4)
[2024-11-03 06:41] LABS: Albumin, Blood 2.8 g/dL (3.4-5.0); Anion Gap 7 mmol/L (3-11); Blood Urea Nitrogen 27 mg/dL (8-24); CO2, Blood 34 mmol/L (21-32); Calcium, Blood 8.2 mg/dL (8.5-10.1); Chloride, Blood 101 mmol/L (98-108); Creatinine, Blood 0.96 mg/dL (0.40-1.00); Glucose, Blood 107 mg/dL (70-99); Phosphorus, Blood 3.5 mg/dL (2.5-4.9); Potassium, Blood 3.9 mmol/L (3.5-5.5); Sodium, Blood 138 mmol/L (136-145)
[2024-11-03 08:14] VITALS: BP 119/72
[2024-11-03] MEDS ORDERED: ELIQUIS5 M2 PO (13:41)
[2024-11-03] MEDS ORDERED: ENTRESTO 97 MG1 EACH PO (13:42)
[2024-11-03] MEDS ORDERED: SPIR25 PO (13:42)
[2024-11-03] MEDS ORDERED: JARDIANCE10 MG PO (13:42)
[2024-11-03] MEDS ORDERED: METO50ER PO (13:42)
--- NOTE | 2024-11-03 14:35 | NUR ---
PATIENT DC'D TO [facility] WITH [facility]. DC PAPERS DISCUSSED WITH PATIENT AND COPY PROVIDED. BELONGINGS SENT WITH PATIENT. PATIENT DENIES ANY FURTHER QUESTIONS OR CONCERNS.
== END 2024-11-03 13:49 | disposition home health service (06) | DRG 281 ==
LOC: ER 12:41 → MEDS 16:01
PROVIDERS: Emergency Medicine; ADMIT Family Medicine
DX: I50.21 Acute systolic (congestive) heart failure (principal); E87.1 Hypo-osmolality and hyponatremia; I21.A1 Myocardial infarction type 2; I48.92 Unspecified atrial flutter; N39.0 Urinary tract infection, site not specified; Z66 Do not resuscitate; R53.1 Weakness; E87.6 Hypokalemia; F41.9 Anxiety disorder, unspecified; E03.9 Hypothyroidism, unspecified; B96.20 Unspecified Escherichia coli [E. coli] as the cause of diseases classified elsewhere; Z74.01 Bed confinement status; Z99.3 Dependence on wheelchair
CPT/HCPCS: 36415; 71045; 80048; 80053; 80069; 83735; 83880; 84439; 84443; 84481; 84484; 85025; 93005; 93010; 93306; 94760; 96374; 97110; 97161; 97165; 97530; 97535; 99285-25; A6590; A9270; J0696; J1650; J1938; J3360; J7050; P9612